=== PATIENT | male | born 1975 | race Hispanic/Latino ===

== ENCOUNTER 2024-09-25 01:15 | Observation (INO) | payer OTHER, SELFPAY ==
[2024-09-25 01:48] VITALS: BMI 21.8
[2024-09-25 05:18] LABS: #Basophils Less than 0.03 10x3/uL (0.0-0.2); #Eosinophils Less than 0.03 10x3/uL (0.0-0.7); %Basophils 0.1 % (0.0-1.0); %Lymphocytes 8.5 % (21.0-51.0); %Monocytes 1.5 % (0.0-10.0); %Neutrophils 89.5 % (42.0-75.0); Hematocrit 43.6 % (42.0-52.0); Hemoglobin 15.1 g/dL (14.0-18.0); Mean Corpuscular HGB CONC 34.6 g/dL (32.0-36.0); Mean Corpuscular Hemoglobin 28.9 pg (27.0-31.0); Mean Corpuscular Volume 83.5 fL (78.0-98.0); Mean Platelet Volume 9.7 fL (7.4-10.4); Platelet Count 283 10x3/uL (130-400); RBC Distribution Width 12.7 % (11.5-14.5); Red Blood Cell (RBC) Count 5.22 mill/uL (4.70-6.10)
[2024-09-25 05:29] LABS: Hemoglobin A1c 8.4 % (4.0-6.0)
[2024-09-25 05:38] LABS: ALT (SGPT) 23 U/L (8-55); AST (SGOT) 14 U/L (5-34); Albumin 3.9 g/dL (3.5-5.0); Alkaline Phosphatase 93 U/L (40-110); Anion Gap 14 mmol/L (10-20); BUN (Urea Nitrogen) 11 mg/dL (8.9-20.6); Bilirubin, Total 1.2 mg/dL (0.2-1.2); Calc. Creatinine Clearance 85 mL/min (70-130); Calcium 8.7 mg/dL (7.8-10.44); Carbon Dioxide 19 mmol/L (22-29); Chloride 108 mmol/L (98-107); Estimated GFR 106; Glucose 156 mg/dL (70-105); Potassium 3.9 mmol/L (3.5-5.1); Protein, Total 6.9 g/dL (6.0-8.3); Sodium 137 mmol/L (136-145)
[2024-09-25] MEDS ORDERED: Labetalol HCl 100 MG/20 ML VIAL SLOW IVP PRN (07:42)
[2024-09-25] MEDS ORDERED: Dextrose 5% in Water 1,000 ML IV PRN (07:45)
[2024-09-25] MEDS ORDERED: Insulin Lispro 100 UNIT/ML 10 ML VIAL SC PRN ×2 (07:45→07:51)
[2024-09-25] MEDS ORDERED: Glucagon 1 MG/ML KIT IM PRN (07:45)
[2024-09-25] MEDS ORDERED: Dextrose 50% Abboject 50 ML SYRINGE SLOW IVP PRN (07:45)
[2024-09-25] MEDS ORDERED: Meclizine HCl 12.5 MG TAB PO PRN (08:20)
[2024-09-25] MEDS ORDERED: Ondansetron ODT 8 MG TAB SL PRN (08:22)
[2024-09-25 09:38] VITALS: TEMP 97.8
[2024-09-25] MEDS ORDERED: Acetaminophen 325 MG TAB PO PRN (10:11)
[2024-09-25 11:56] VITALS: BP 112/71
[2024-09-25] MEDS: Insulin Glargine 30 UNITS/0.3 ML VIAL ONE (14:14)
[2024-09-25] MEDS: Insulin Glargine 30 UNITS/0.3 ML VIAL SC SCH (14:14)
[2024-09-25] MEDS: Aspirin 81 mg Enteric Coated Tablet PO SCH (14:14)
[2024-09-25] MEDS ORDERED: Atorvastatin Calcium 40 MG TAB PO SCH (21:00)
== END 2024-09-25 19:00 | disposition home or self-care (01) ==
LOC: OBS 01:15
PROVIDERS: ADMIT Student in an Organized Health Care Education/Training Program; ATTEND Student in an Organized Health Care Education/Training Program
PROC: B246ZZZ Ultrasonography of Right and Left Heart (ICD-10-PCS; principal; 2024-09-25)
DX: R42 Dizziness and giddiness (principal); E11.9 Type 2 diabetes mellitus without complications; Z79.4 Long term (current) use of insulin; Z79.84 Long term (current) use of oral hypoglycemic drugs
CPT/HCPCS: 36415; 70496; 70498; 70551; 80053; 83036; 85025; 93306; G0378; J1815